=== PATIENT | female | born 1945 | race Caucasian/White ===

== ENCOUNTER → 2018-09-06 | Outpatient (CLI) | payer MEDICARE | END | disposition home or self-care (01) | LOC: CFH 14:47 | PROVIDERS: ATTEND Family Medicine | DX: Z12.2 Encounter for screening for malignant neoplasm of respiratory organs (principal); I25.10 Atherosclerotic heart disease of native coronary artery without angina pectoris; I31.3 Pericardial effusion (noninflammatory); J84.10 Pulmonary fibrosis, unspecified; R91.1 Solitary pulmonary nodule; F17.219 Nicotine dependence, cigarettes, with unspecified nicotine-induced disorders | CPT/HCPCS: G0297 ==

== ENCOUNTER → 2020-01-26 | Outpatient (CLI) | payer MEDICARE | END | disposition home or self-care (01) | LOC: CVU 09:17 | PROVIDERS: ATTEND Internal Medicine Cardiovascular Disease | DX: Z01.810 Encounter for preprocedural cardiovascular examination (principal); I08.3 Combined rheumatic disorders of mitral, aortic and tricuspid valves; I65.23 Occlusion and stenosis of bilateral carotid arteries; E78.5 Hyperlipidemia, unspecified; I31.3 Pericardial effusion (noninflammatory); Z87.891 Personal history of nicotine dependence | CPT/HCPCS: 93306; 93356; 93880 ==

== ENCOUNTER 2020-02-22 07:59 | Outpatient (CLI) | payer MEDICARE ==
[~2020-02-22 07:59] MED LIST: REGADENOSON 0.4 MG/5 ML SYRINGE ONE
[2020-02-22] MEDS ORDERED: AMINOPHYLLINE 25 MG/ML, 10ML ONE (13:36)
== END 2020-02-22 23:59 | disposition home or self-care (01) ==
LOC: CFH 07:59
PROVIDERS: ATTEND Internal Medicine Cardiovascular Disease
DX: Z01.810 Encounter for preprocedural cardiovascular examination (principal); I25.89 Other forms of chronic ischemic heart disease; I65.23 Occlusion and stenosis of bilateral carotid arteries; R06.02 Shortness of breath
CPT/HCPCS: 78452; 93017; A9502; J0280; J2785

== ENCOUNTER → 2020-09-23 | Outpatient (CLI) | payer MEDICARE | END | disposition home or self-care (01) | LOC: CFH 12:22 | PROVIDERS: ATTEND Internal Medicine | DX: Z12.2 Encounter for screening for malignant neoplasm of respiratory organs (principal); Z87.891 Personal history of nicotine dependence | CPT/HCPCS: 71271 ==

== ENCOUNTER → 2021-01-30 | Outpatient (CLI) | payer MEDICARE | END | disposition home or self-care (01) | LOC: CVU 08:00 | PROVIDERS: ATTEND Internal Medicine Cardiovascular Disease | DX: I65.23 Occlusion and stenosis of bilateral carotid arteries (principal) | CPT/HCPCS: 93880 ==